=== PATIENT | female | born 1935 | race Caucasian/White ===

== ENCOUNTER 2024-11-12 12:56 | Outpatient (OUT) | payer MEDICARE, SELFPAY ==
--- NOTE | 2024-11-12 13:01 | XR_ITS ---
[address] [address] Patient Name: SUKHI SEBASTIAN MRN: [id number] date: 1935 Sex: F Assigned Patient Location: [facility] Current Patient Location: [facility] Accession/Order Number: [id number] Exam Date: 11/12/2024 13:12 Report Date: 11/12/2024 14:07 At the request of: PARUL CERVANTES Procedure: XR ankle RT min 3V EXAMINATION: XR foot EDGAR min 3V, XR ankle RT min 3V HISTORY: Pain COMPARISON: No relevant comparison available. FINDINGS: RIGHT FINDINGS: BONES: No acute fracture or dislocation. Severe degenerative changes with joint space narrowing marginal osteophyte formation. Moderate enthesopathic spurring of the calcaneus SOFT TISSUES: Negative. No visible soft tissue swelling. OTHER: Negative. LEFT FINDINGS: BONES: No acute fracture or dislocation. Moderate degenerative changes with joint space narrowing and marginal osteophyte formation most significant at the first interphalangeal joint. Enthesopathic spurring of the calcaneus SOFT TISSUES: Negative. No visible soft tissue swelling. OTHER: Negative. XR/XR ankle RT min 3V IMPRESSION: RIGHT CONCLUSION: Severe osteoarthritis LEFT CONCLUSION: Moderate osteoarthritis Electronically authenticated by: RENNY HINES Date: 11/12/2024 14:07
--- NOTE | 2024-11-12 13:01 | XR_ITS ---
[address] [address] Patient Name: SUKHI SEBASTIAN MRN: [id number] date: 1935 Sex: F Assigned Patient Location: [facility] Current Patient Location: [facility] Accession/Order Number: [id number] Exam Date: 11/12/2024 13:12 Report Date: 11/12/2024 14:07 At the request of: PARUL CERVANTES Procedure: XR foot EDGAR min 3V EXAMINATION: XR foot EDGAR min 3V, XR ankle RT min 3V HISTORY: Pain COMPARISON: No relevant comparison available. FINDINGS: RIGHT FINDINGS: BONES: No acute fracture or dislocation. Severe degenerative changes with joint space narrowing marginal osteophyte formation. Moderate enthesopathic spurring of the calcaneus SOFT TISSUES: Negative. No visible soft tissue swelling. OTHER: Negative. LEFT FINDINGS: BONES: No acute fracture or dislocation. Moderate degenerative changes with joint space narrowing and marginal osteophyte formation most significant at the first interphalangeal joint. Enthesopathic spurring of the calcaneus SOFT TISSUES: Negative. No visible soft tissue swelling. OTHER: Negative. XR/XR foot EDGAR min 3V IMPRESSION: RIGHT CONCLUSION: Severe osteoarthritis LEFT CONCLUSION: Moderate osteoarthritis Electronically authenticated by: RENNY HINES Date: 11/12/2024 14:07
== END 2024-11-12 12:57 | disposition home or self-care (01) ==
LOC: RAD 12:56
PROVIDERS: Visit Provider Podiatrist Foot & Ankle Surgery
DX: M79.672 Pain in left foot (principal); M25.571 Pain in right ankle and joints of right foot; M79.671 Pain in right foot; M19.071 Primary osteoarthritis, right ankle and foot; M19.072 Primary osteoarthritis, left ankle and foot
CPT/HCPCS: 73610; 73630

== ENCOUNTER 2024-11-25 12:56 | Outpatient (RCR) | payer MEDICARE, SELFPAY | END 2024-12-19 09:42 | disposition home or self-care (01) | LOC: PT 12:56 | PROVIDERS: Visit Provider Podiatrist Foot & Ankle Surgery | DX: M19.071 Primary osteoarthritis, right ankle and foot (principal); R26.9 Unspecified abnormalities of gait and mobility; R26.89 Other abnormalities of gait and mobility | CPT/HCPCS: 97035; 97110; 97161 ==